=== PATIENT | male | born 1950 | race Caucasian/White ===

== ENCOUNTER 2016-10-07 08:27 | Outpatient (RCR) | payer MEDICARE, BC | END 2017-01-05 | disposition home or self-care (01) | LOC: PT | DX: Z47.1 Aftercare following joint replacement surgery (principal); Z96.612 Presence of left artificial shoulder joint ==

== ENCOUNTER → 2018-11-02 | Outpatient (CLI) | payer MEDICARE, BC | LOC: VAS 15:55 → RAD 16:00 | DX: R06.09 Other forms of dyspnea (principal) ==

== ENCOUNTER → 2018-11-08 | Outpatient (CLI) | payer MEDICARE, BC | LOC: RAD 12:49 → MAMMO 13:00 → RAD 13:00 | DX: M40.30 Flatback syndrome, site unspecified (principal); M85.89 Other specified disorders of bone density and structure, multiple sites ==

== ENCOUNTER → 2018-11-10 | Outpatient (CLI) | payer MEDICARE, BC | LOC: CARDLAB → CARDREHAB 07:42 → CARDLAB 14:10 | DX: Z01.812 Encounter for preprocedural laboratory examination (principal); R06.09 Other forms of dyspnea | CPT/HCPCS: A9500 ==

== ENCOUNTER → 2018-11-16 | Outpatient (CLI) | payer MEDICARE, BC | LOC: RAD 09:50 | DX: Z01.818 Encounter for other preprocedural examination (principal); R06.09 Other forms of dyspnea ==

== ENCOUNTER → 2019-07-09 | Outpatient (CLI) | payer MEDICARE, BC | LOC: RAD 13:42 | DX: M50.30 Other cervical disc degeneration, unspecified cervical region (principal); M41.82 Other forms of scoliosis, cervical region; J43.9 Emphysema, unspecified; Z92.3 Personal history of irradiation; Z85.118 Personal history of other malignant neoplasm of bronchus and lung | CPT/HCPCS: Q9967 ==

== ENCOUNTER 2021-10-22 08:00 | Outpatient (RCR) | payer MEDICARE, BC | END 2021-11-13 17:00 | disposition home or self-care (01) | LOC: PT 08:00 | DX: M25.512 Pain in left shoulder (principal) ==

== ENCOUNTER → 2024-02-16 | Outpatient (CLI) | payer MEDICARE, BC | LOC: RAD 08:24 | DX: M81.0 Age-related osteoporosis without current pathological fracture (principal) ==

== ENCOUNTER → 2024-09-29 | Outpatient (CLI) | payer MEDICARE, BC | LOC: RAD 07:18 | DX: I08.2 Rheumatic disorders of both aortic and tricuspid valves (principal); I25.10 Atherosclerotic heart disease of native coronary artery without angina pectoris ==